=== PATIENT | female | born 1995 | race African-American/Black ===

== ENCOUNTER 2020-01-16 16:13 | Emergency (ER) | payer SELFPAY ==
[2020-01-16] MEDS ORDERED: ACETAMINOPHEN 325 MG TABLET PO ONE (17:41)
[2020-01-16] MEDS ORDERED: NORMAL SALINE 1000 ML 1,000 ML IV ONE (17:42)
--- NOTE | 2020-01-16 17:45 | ER Document Report ---
ED Medical Screen (RME) - General Stated Complaint: WEAK/POSSIBLE OVERHEATING Time Seen by Provider: 01/16/20 17:34 Mode of Arrival: Ambulatory Information source: Patient Notes: HPI; 24 y/o female presents to the emergency room complaining of subjective fever, body aches, sweating for the past 2 to 3 days.; works in the sun all day. No meds for symptoms. No travel. no COVID 19 exposure PE:alert and oriented x 3. Mild distress noted. Lungs. CTA without rales, rhonchi or wheezes. Heart : rrr without murmurs rubs or gallops. I have greeted and performed a rapid initial assessment of this patient. A comprehensive ED assessment and evaluation of the patient, analysis of test results and completion of the medical decision making process will be conducted by additional ED providers. I have specifically instructed the patient or family members with the patient to immediately return to any nursing staff should anything change in the patient's condition or with their chief complaint. TRAVEL OUTSIDE OF THE [place] IN LAST 30 DAYS: No Physical Exam - Vital signs Vitals: Temp Pulse Resp BP Pulse Ox 101.0 F H 84 16 127/80 H 99 01/16/20 16:47 01/16/20 16:47 01/16/20 16:47 01/16/20 16:47 01/16/20 16:47 Course - Vital Signs Vital signs: Temp Pulse Resp BP Pulse Ox 101.0 F H 84 16 127/80 H 99 01/16/20 16:47 01/16/20 16:47 01/16/20 16:47 01/16/20 16:47 01/16/20 16:47
[2020-01-16 18:48] LABS: ABSOLUTE BASOPHILS # (AUTO) 0.1 10^3/uL (0.0-0.2); ABSOLUTE LYMPHOCYTES (AUTO) 2.6 10^3/uL (0.5-4.7); ABSOLUTE MONOCYTES (AUTO) 1.2 10^3/uL (0.1-1.4); ABSOLUTE NEUT (AUTO) 6.1 10^3/uL (1.7-8.2); BASOPHILS % (AUTO) 0.7 % (0-2); EOSINOPHILS % (AUTO) 0.3 % (0-6); HEMATOCRIT 43.3 % (36.0-47.0); HEMOGLOBIN 14.6 g/dL (12.0-15.5); LYMPHOCYTES % (AUTO) 26.2 % (13-45); MEAN CORPUSCULAR HEMOGLOBIN 30.5 pg (27.0-33.4); MEAN CORPUSCULAR HGB CONC 33.8 g/dL (32.0-36.0); MEAN CORPUSCULAR VOLUME 90 fl (80-97); MONOCYTES % (AUTO) 11.6 % (3-13); PLATELET COUNT 418 10^3/uL (150-450); RED CELL DISTRIBUTION WIDTH 13.5 % (11.5-14.0); SEGMENTED NEUTROPHILS % (AUTO) 61.2 % (42-78); TOTAL CELLS COUNTED % (AUTO) 100 %
[2020-01-16 18:54] LABS: APPEARANCE,URINE CLOUDY; BILIRUBIN,URINE NEGATIVE (NEGATIVE); COLOR,URINE AMBER; GLUCOSE, URINE NEGATIVE (NEGATIVE); KETONES,URINE NEGATIVE (NEGATIVE); LEUKOCYTE ESTERASE,URINE LARGE (NEGATIVE); NITRITE,URINE POSITIVE (NEGATIVE); PROTEIN,URINE 100 mg/dL (NEGATIVE); URINE SPECIFIC GRAVITY 1.019
[2020-01-16 19:05] LABS: ALBUMIN 4.9 g/dL (3.5-5.0); ALKALINE PHOSPHATASE 109 U/L (38-126); ANION GAP 13 (5-19); ASPARTATE AMINO TRANSFERASE 31 U/L (14-36); BILIRUBIN,DIRECT 0.2 mg/dL (0.0-0.4); BILIRUBIN,TOTAL 0.7 mg/dL (0.2-1.3); BLOOD UREA NITROGEN 11 mg/dL (7-20); CALCIUM 9.8 mg/dL (8.4-10.2); CARBON DIOXIDE 25 mmol/L (22-30); CHLORIDE 97 mmol/L (98-107); CREATINE KINASE 54 U/L (30-135); GLUCOSE 99 mg/dL (75-110); POTASSIUM 4.3 mmol/L (3.6-5.0); TOTAL PROTEIN 8.8 g/dL (6.3-8.2)
[2020-01-16 20:50] VITALS: BP 138/82
[2020-01-16] MEDS ORDERED: NORMAL SALINE 1000 ML 2,000 ML IV ONE (20:58)
--- NOTE | 2020-01-16 21:14 | ER Document Report ---
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 She last voided about 8:00 this morning feels as though she might be dehydrated Quality of pain: Achy Associated Symptoms: None Exacerbated by: Denies Relieved by: Denies Past Medical History - General Information source: Patient - Social History Smoking Status: Never Smoker Cigarette use (# per day): No Chew tobacco use (# tins/day): No Smoking Education Provided: No Frequency of alcohol use: None Drug Abuse: None Lives with: Family Family History: None Vertical Provider Document - CONSTITUTIONAL Agree With Documented VS: Yes - INFECTION CONTROL TRAVEL OUTSIDE OF THE [place] IN LAST 30 DAYS: No - HEENT HEENT: Atraumatic, PERRLA - NECK Neck: Normal Inspection, Supple - RESPIRATORY Respiratory: Breath Sounds Normal, No Respiratory Distress - CARDIOVASCULAR Cardiovascular: Regular Rate, Regular Rhythm - GI/ABDOMEN Gastrointestinal: Abdomen Soft, Abdomen Non-Tender - BACK Back: Normal Inspection - MUSCULOSKELETAL/EXTREMETIES Musculoskeletal/Extremeties: MAEW - NEURO Level of Consciousness: Awake, Alert - DERM Integumentary: Warm Course - Re-evaluation Re-evalutation: 01/16/20 21:10 Patient states she intentionally tries not to drink so she does not have to void while she is working. She last voided this morning at about 8 AM. She drinks about 2 bottles of water a day while working in 95 degree heat heavy humidity here in [facility]. Putting gutters on homes all day. She has scant nausea. She has no abdominal pain no diarrhea no cough no congestion. Her sodium and chloride are both a little bit low. Patient I had a long conversation about dehydration and heat exposure - Vital Signs Vital signs: Temp Pulse Resp BP Pulse Ox 100.3 F 58 L 20 138/82 H 80 L 01/16/20 20:46 01/16/20 20:46 01/16/20 20:46 01/16/20 20:46 01/16/20 20:46 - Laboratory Result Diagrams: 01/16/20 18:37 01/16/20 18:37 Laboratory results interpreted by me: 01/16/20 01/16/20 18:37 18:37 Sodium 135.1 L Chloride 97 L Total Protein 8.8 H Urine Protein 100 H Urine Blood LARGE H Urine Nitrite POSITIVE H Urine Urobilinogen 2.0 H Ur Leukocyte Esterase LARGE H Urine Ascorbic Acid 40 H 01/16/20 21:10 Labs- All tests 24 hr 01/16/20 01/16/20 01/16/20 18:37 18:37 18:37 WBC 10.0 RBC 4.80 Hgb 14.6 Hct 43.3 MCV 90 MCH 30.5 MCHC 33.8 RDW 13.5 Plt Count 418 Lymph % (Auto) 26.2 [place] % (Auto) 11.6 Eos % (Auto) 0.3 Baso % (Auto) 0.7 Absolute Neuts (auto) 6.1 Absolute Lymphs (auto) 2.6 Absolute Monos (auto) 1.2 Absolute Eos (auto) 0.0 Absolute Basos (auto) 0.1 Seg Neutrophils % 61.2 Sodium 135.1 L Potassium 4.3 Chloride 97 L Carbon Dioxide 25 Anion Gap 13 BUN 11 Creatinine 1.11 Est GFR ( Amer) > 60 Est GFR (MDRD) Non-Af > 60 Glucose 99 Calcium 9.8 Total Bilirubin 0.7 Direct Bilirubin 0.2 Neonat Total Bilirubin Not Reportable Neonat Direct Bilirubin Not Reportable Neonat Indirect Bili Not Reportable AST 31 ALT 29 Alkaline Phosphatase 109 Creatine Kinase 54 CK-MB (CK-2) Total Protein 8.8 H Albumin 4.9 Serum HCG, Qual NEGATIVE Urine Color Urine Appearance Urine pH Ur Specific [place] Urine Protein Urine Glucose (UA) Urine Ketones Urine Blood Urine Nitrite Urine Bilirubin Urine Urobilinogen Ur Leukocyte Esterase Urine WBC (Auto) Urine RBC (Auto) Urine Bacteria (Auto) Urine WBC Clumps Squamous Epi Cells Auto U Non-Squamous Epis Auto Urine Mucus (Auto) Urine Ascorbic Acid 01/16/20 01/16/20 18:37 18:37 WBC RBC Hgb Hct MCV MCH MCHC RDW Plt Count Lymph % (Auto) [place] % (Auto) Eos % (Auto) Baso % (Auto) Absolute Neuts (auto) Absolute Lymphs (auto) Absolute Monos (auto) Absolute Eos (auto) Absolute Basos (auto) Seg Neutrophils % Sodium Potassium Chloride Carbon Dioxide Anion Gap BUN Creatinine Est GFR ( Amer) Est GFR (MDRD) Non-Af Glucose Calcium Total Bilirubin Direct Bilirubin Neonat Total Bilirubin Neonat Direct Bilirubin Neonat Indirect Bili AST ALT Alkaline Phosphatase Creatine Kinase CK-MB (CK-2) < 0.22 Total Protein Albumin Serum HCG, Qual Urine Color ARIAS Urine Appearance CLOUDY Urine pH 5.0 Ur Specific [place] 1.019 Urine Protein 100 H Urine Glucose (UA) NEGATIVE Urine Ketones NEGATIVE Urine Blood LARGE H Urine Nitrite POSITIVE H Urine Bilirubin NEGATIVE Urine Urobilinogen 2.0 H Ur Leukocyte Esterase LARGE H Urine WBC (Auto) >182 Urine RBC (Auto) 31 Urine Bacteria (Auto) 3+ Urine WBC Clumps MANY Squamous Epi Cells Auto 3 U Non-Squamous Epis Auto 2 Urine Mucus (Auto) MOD Urine Ascorbic Acid 40 H Discharge - Discharge Clinical Impression: Dehydration Heat exposure Qualifiers: Encounter type: initial encounter Qualified Code(s): T67.9XXA - Effect of heat and light, unspecified, initial encounter Condition: Good Disposition: HOME, SELF-CARE Instructions: Dehydration ([facility]) Additional Instructions: Patient needs to drink an excessive amount of fluids. We had a long conversation about water which she really does not care for the taste we discussed different strategies include needing using bio water flavor drops different methods of making water taste better it may be some fruit juice. Gatorade. Return to the emergency room for any change worsening condition.Dehydration Dehydration can result from vomiting or diarrhea, fever, or decreased intake of fluids. If severe, hospitalization and intravenous fluids may be required. Most cases are treated at home with fluids by mouth. For the next 24 hours, drink lots of clear fluids. In mild cases, this can be soda pop or sports drinks. For more severe dehydration, the doctor may recommend special fluids such as Pedialyte or Lytren. Try to get three liters (3 quarts) of fluid per day. If vomiting occurs, continue to drink the fluids frequently (every 15 to 20 minutes), but in small amounts (one or two ounces). Depending on the type of dehydration, the doctor may prescribe antinausea medicine or potassium replacements. Call the doctor or return for re-examination if you become progressively weak, vomit repeatedly, or have other new symptoms.
== END 2020-01-16 22:59 | disposition home or self-care (01) ==
LOC: ER 16:13
DX: E86.0 Dehydration (principal); R53.81 Other malaise; R11.0 Nausea; X30.XXXA Exposure to excessive natural heat, initial encounter; Z20.828 Contact with and (suspected) exposure to other viral communicable diseases
CPT/HCPCS: 99284; 96360; 96361; 36415; 82553; 82550; 84703; 85025; 87635; 80053; 81001; J7030; C9803